=== PATIENT | male | born 1960 | race Caucasian/White ===

== ENCOUNTER 2016-11-09 12:55 | Day surgery (SDC) | payer BC ==
[~2016-11-09 12:55] MED LIST: KETOROLAC TROMETHAMINE 15 MG/ML VIAL IV PRN; METOCLOPRAMIDE HCL 5 MG/ML VIAL IV PRN; NORMAL SALINE 1,000 ML IV PRN; ONDANSETRON HCL/PF 2 MG/ML VIAL IV PRN
--- OUTSIDE RECORDS SUMMARY | 2016-11-09 13:01 | XMS REPORT | Continuity of Care Document ---
:1960 Author Organization [facility] ([facility]) Address [address] [place] [address] Phone [phone] Care Team Providers Name Role Phone Lashonda Bronson Primary Care Provider [phone] Source Comments This disclosure is being made pursuant to the Care Everywhere program, applicable federal and state laws, and may not contain all informaitonavailable regarding this patient.[facility] ([facility]) Active Allergies and Adverse Reactions No Known Allergies Current Medications Prescription Sig. Disp. Refills Start Date End Date Status omeprazole 2 mg/mL Take 10 mL (20 mg 480 mL 5 06/11/2015 Active suspension total) by mouth 2 times daily gabapentin 300 mg 08/15/2016 Active capsule losartan 50 mg tablet Take 50 mg by mouth 5 10/06/2016 Active daily. albuterol-ipratropium USE 1 VIAL IN 2 10/10/2016 Active 2.5-0.5 mg/3 mL NEBULIZER 4 TIMES A inhalation solution DAY, DIRECTED. montelukast 10 mg 10/17/2016 Active tablet VENTOLIN HFA 90 USE 2 PUFFS BY MOUTH 2 10/07/2016 Active mcg/Actuation inhaler 4 TIMES A DAY, NEEDED FOR WHEEZING. Active Problems Problem Noted Date Vocal cord paralysis 06/11/2015 Overview: left Dysphagia 06/08/2015 Halitosis 06/08/2015 Weight loss 06/08/2015 Zenker's diverticulum 06/08/2015 Closed fracture of acetabulum 08/13/2002 Most Recent Encounters Date Type Specialty Providers Description 10/19/2016 Hospital Encounter Radiology Lulú Valerio MD Dx: Left hip pain 10/19/2016 Office Visit Orthopaedic Adi Garcia MD Dx: Left hip pain (Primary Dx) Social History Tobacco Use Types Packs/Day Years Used Date Never Smoker Smokeless Tobacco: Never Used Alcohol Use Drinks/Week oz/Week Comments Yes 1 Glasses of wine 1 Cans of beer Last Filed Vital Signs Vital Sign Reading Time Taken Blood Pressure 147/94 07/29/2015 2:17 PM [employer] Pulse 73 07/29/2015 2:17 PM [employer] Temperature 36.3 C (97.3 F) 07/29/2015 2:17 PM [employer] Respiratory Rate 16 06/13/2015 10:55 AM [employer] Height 1.829 m (6' 0.01") 06/09/2015 12:20 PM [employer] Weight 76.1 kg (167 lb 12.3 oz) 06/24/2015 3:34 PM [employer] Body Mass Index 22.75 06/24/2015 3:34 PM [employer] Oxygen Saturation 94% 06/13/2015 8:00 AM [employer] Plan of Care Health Maintenance Due Date Last Done Comments HCV Screening 1960 Hepatitis B Vaccine (1 of 3 - Primary Series) 1960 Tdap Vaccine 1969 Lipid Disorder Screening 1976 MMR Vaccine 1976 Td Vaccine 1976 Colonoscopy 12/12/2008 Prostate Cancer Screening 2008 Influenza Vaccine: Seasonal (Season Ended) 2017 Results from Last 3 Months PELVIS AP& JUDET OBLIQUES (10/19/2016 2:03 PM) Impressions Findings / Impression: Postsurgical changes of multiple plate and screw fixation for left acetabular fracture shows grossly stable deformity of the left hemipelvis since the prior. Prominent left superior iliac screw, fractured malleable plate, fractured inferior most screw appear stable. Marked superior joint space narrowing of the left hip joint consistent with post traumatic grade 4 osteoarthritis, also stable. Narrative Procedure: PELVIS AP & JUDET OBLIQUES Clinical Indication: Evaluate healing Comparison: 01/22/2014 Procedure Note Alfonso, Incoming Imaging Results - MonOctober 19, 2016 5:03 PM CDT Procedure: PELVIS AP & JUDET OBLIQUES Clinical Indication: Evaluate healing Comparison: 01/22/2014 IMPRESSION Findings / Impression: Postsurgical changes of multiple plate and screw fixation for left acetabular fracture shows grossly stable deformity of the left hemipelvis since the prior. Prominent left superior iliac screw, fractured malleable plate, fractured inferior most screw appear stable. Marked superior joint space narrowing of the left hip joint consistent with post traumatic grade 4 osteoarthritis, also stable.
[2016-11-09] MEDS ORDERED: RINGERS SOLUTION,LACTATED 1,000 ML IV ONE (15:55)
--- NOTE | 2016-11-09 16:22 | OR ---
Operative Report - Dictated Report Narrative: Location: Main OR Anesthesia: General Surgeon: Dr. Ann Preoperative diagnosis: Right proximal ureteral stone Postoperative diagnosis: Same, proximal urethral stricture roughly 10-12 [place], urinary retention Procedure: #1 Cystoscopy with right retrograde pyelograms, bladder washing for cytology and culture #2 right stone manipulation without removal with placement of 6 by multi length double-J stent Indications: 55-year-old male significant prior stone history including PCNL on the right, some sort of bleeding episode in the bladder post-cauterization and left pelvic fracture presented with right-sided flank pain. CT with stone. CT repeated today and stone in the exact same location. Discussed options and elected to proceed with above-mentioned procedure. Description: Consent obtained. Patient brought to the operating room where general endotracheal anesthesia was induced. Placed in the dorsal lithotomy position. Prepped and draped. Timeout taken. Rigid cystoscope introduced navigated proximally. As I approached the proximal urethra there is a definite stricture just distal or right at the sphincter I would estimate about 10-12 [place] in size. It is not long it does not appear overly dense but with gentle pressure it did not give with the rigid scope and so I backed off. I navigated the Super Stiff wire into the bladder under fluoroscopic and direct guidance curled it in the bladder. Bladder appeared a bit distended. I did not have permission for stricture dilation and more importantly patient was unaware there was a possibility he could end up with catheter. In addition urethral balloon dilator was not available as it is on a stalk. I did not want to Amplatz dilate as I think that has a higher propensity to progress scar/ recurred. I think this stricture is amenable to balloon which is less traumatic. I stepped out discussed with family. My plan was to attempt with a flexible ureteroscope as I have often been able to intubate/proceed/place wire with that sort of scope but could not guarantee success. With Super Stiff wire left in the bladder and navigated the flexible ureteroscope past the stricture with ease. I entered the bladder which was distended. There is some trabeculation there was some debris. I did not perform complete cystoscopy. Washing was obtained sent for cytology and culture. Right ureteric orifice was identified. I had already advance the Xfireson wire and preloaded it after the washing and I was able to intubate ureter easily with wire. I was actually able advanced the scope up the ureter but I was uncomfortable proceeding without safety wire. I went ahead and position the wire and what appeared to be the mid ureter and removed the scope leaving the wire in place. I reintroduced the flexible scope and I was able to intubate the distal ureter alongside the wire however I could not advance proximally secondary to resistance probably from both the wire and the lack of a wire through the scope. Given the anatomic difficulties I felt it was best at this point the likely stent allow for passive dilation. My plan would be balloon dilation after informing patient of potential risks and benefits. I therefore advanced 5 [place] catheter over the Bentson wire removed it in the mid ureter injected contrast outlining a normal caliber mid ureter with some tortuosity to the ureter and narrowing with a shadowing filling defect consistent with the known location of stone. I was able to reintroduce the wire and manipulate the stone into the hydronephrotic upper collecting system using the 5 [place] catheter. Additional contrast was injected outlining the collecting system. Indeed it was hydronephrotic I don't think there is a stricture but there is a relative narrowing in the area where the stone was impacted. 5 [place] catheter removed 6 by multi length stent advanced using fluoroscopic guidance. I did use the 5 [place] catheter to remove couple 100 mL from the bladder and start with a more empty bladder. Specimen: Bladder washing for cytology and culture EBL: 0 ml Condition: tolerated procedure Important findings: Tight proximal urethral stricture 10-12 B[place]an. Very important nobody tries to place a catheter as there is a high probability 16 [place] catheter will not bypass stricture and could cause false passage. If any trouble with retention contact urology to place catheter. Discussed with that patient can have surgery tomorrow provided he is nothing by mouth. My plan would be a retrograde urethrogram followed by urethral balloon dilation understanding we'll need catheter for a few days afterwards. I think with stenting and Super Stiff wire should be able to get up to stone and treat as soon as tomorrow and then make decision on stent based on his symptomatology. Alternatively can wait a few days. Follow-up: Possibly tomorrow. We'll otherwise schedule for Monday same procedure. If [place] can obtain urethral balloon dilator can do on Monday in [place].
[2016-11-09] MEDS: oxyCODONE HCL/ACETAMINOPHEN 1 TAB TABLET PO PRN ×2 (17:20→17:45)
[2016-11-09 19:29] VITALS: BP 148/78
== END 2016-11-09 12:56 | disposition home or self-care (01) ==
LOC: AMB 12:55
PROVIDERS: ATTEND Urology
PROC: 3E1K88X Irrigation of Genitourinary Tract using Irrigating Substance, Via Natural or Artificial Opening Endoscopic, Diagnostic (ICD-10-PCS; 2016-11-09)
PROC: BT1DZZZ Fluoroscopy of Right Kidney, Ureter and Bladder (ICD-10-PCS; principal; 2016-11-09 16:05)
DX: N20.1 Calculus of ureter (principal); I10 Essential (primary) hypertension; M79.7 Fibromyalgia; Z68.25 Body mass index [BMI] 25.0-25.9, adult